=== PATIENT | female | born 1960 | race African-American/Black ===

== ENCOUNTER 2022-03-02 11:31 | Inpatient (IN) | payer MEDICARE, MEDICAID ==
[~2022-03-02] VITALS: Ht 154.9 cm; Wt 66.7 kg
[2022-03-02] MEDS ORDERED: NITROGLYCERIN 0.4MG TABLET SL SL PRN (16:45)
[2022-03-02 17:13] LABS: BASOPHILS % 0.4 % (0.0-2.0); EOSINOPHILS % 1.6 % (0.0-5.0); HEMATOCRIT. 43.9 % (36.0-48.0); LYMPHOCYTES % 48.1 % (20.0-50.0); MEAN CORPUSCULAR HEMOGLOBIN 28.4 pg (28.0-32.0); MEAN CORPUSCULAR VOLUME 83.1 fL (81.0-99.0); MEAN PLATELET VOLUME 8.2 fl (7.4-10.4); MONOCYTES % 7.5 % (2.0-8.0); NEUTROPHILS % 42.4 % (40.0-76.0); PLATELET 268 x1000/uL (130-400); RED BLOOD CELL COUNT 5.28 mill/uL (4.2-5.4); RED CELL DISTRIBUTION WIDTH 15.2 % (11.6-14.6)
[2022-03-02 17:15] LABS: CHLORIDE 107 mEq/L (98-107)
[2022-03-03] VITALS (7 sets, daily range): BP systolic 98–153; BP diastolic 51–103
[2022-03-03] MEDS ORDERED: ACETAMINOPHEN 325MG TABLET PO PRN ×2 (01:15)
[2022-03-03] MEDS ORDERED: LISINOPRIL 5MG TABLET PO SCH (01:15)
[2022-03-03] MEDS ORDERED: IPRATROPIUM/ALBUTEROL 0.5-3(2.5)MG/3ML NEB HHN PRN (01:15)
[2022-03-03] MEDS ORDERED: HYDROCODONE/ACETAMINOPHEN 7.5/325MG TABLET PO PRN (01:15)
[2022-03-03] MEDS ORDERED: CLONIDINE 0.1MG TABLET PO PRN (01:15)
[2022-03-03] MEDS ORDERED: METHOCARBAMOL 500MG TABLET PO SCH (01:30)
[2022-03-03] MEDS ORDERED: HYDROCHLOROTHIAZIDE 25MG TABLET PO NR (01:30)
[2022-03-03] MEDS ORDERED: NALOXONE HCL 0.4MG/ML VIAL IV PRN (02:30)
[2022-03-03] MEDS: HYDROCODONE/ACETAMINOPHEN 7.5/325MG TABLET PO PRN ×2 (02:46→14:31)
[2022-03-03 03:26] LABS: CLARITY URINE CLEAR (CLEAR); COLOR URINE YELLOW (YELLOW); KETONES URINE 1+ (NEGATIVE); LEUKOCYTE ESTERASE URINE NEGATIVE (NEGATIVE); NITRITE URINE NEGATIVE (NEGATIVE); OCCULT BLOOD URINE 1+ (NEGATIVE); PROTEIN URINE NEGATIVE (NEGATIVE); SPECIFIC GRAVITY URINE 1.016 (1.005-1.030); UROBILINOGEN URINE 0.2 E.U./dL (0.2-1.0)
[2022-03-03] MEDS ORDERED: *PATIENT'S OWN MEDICATION STORAGE XX SCH (03:30)
[2022-03-03] MEDS ORDERED: NITROGLYCERIN 0.4MG TABLET SL SL PRN (03:45)
[2022-03-03] MEDS: ASPIRIN 81MG TABLET PO SCH (08:46)
[2022-03-03] MEDS: DULOXETINE HCL 30MG DR CAPSULE PO SCH (08:47)
[2022-03-03] MEDS: METOPROLOL TARTRATE 25MG TABLET PO SCH ×3 (08:48→17:48)
[2022-03-03] MEDS: LISINOPRIL 20MG TABLET PO SCH ×2 (08:48→13:08)
[2022-03-03 08:57] LABS: PROTHROMBIN TIME 10.9 sec (9.6-11.0)
[2022-03-03] MEDS: ENOXAPARIN 40MG/0.4ML SYR SUBCUT SCH (09:00)
[2022-03-03 16:28] LABS: *AMPHETAMINES SCREEN URINE NEGATIVE (NEGATIVE); *BARBITURATES SCREEN URINE NEGATIVE (NEGATIVE); *BENZODIAZEPINES SCREEN URINE NEGATIVE (NEGATIVE); *COCAINE SCREEN URINE NEGATIVE (NEGATIVE); CANNABINOID URINE SCREEN PRESUMTIVE POSITIVE (NEGATIVE); METHADONE URINE SCREEN NEGATIVE (NEGATIVE); OPIATES URINE SCREEN PRESUMTIVE POSITIVE (NEGATIVE); PHENCYCLIDINE URINE SCREEN NEGATIVE (NEGATIVE)
[2022-03-03] MEDS: FAMOTIDINE 20MG TABLET PO SCH (21:51)
[2022-03-03] MEDS: ATORVASTATIN CALCIUM 40MG TABLET PO SCH (21:52)
[2022-03-04] VITALS: BP 135/72
[2022-03-04 04:00] VITALS: BP 108/60
[2022-03-04] MEDS: HYDROCODONE/ACETAMINOPHEN 7.5/325MG TABLET PO PRN ×2 (04:17→20:04)
[2022-03-04 08:15] VITALS: BP 104/60
[2022-03-04] MEDS: METOPROLOL TARTRATE 25MG TABLET PO SCH ×2 (08:49→17:00)
[2022-03-04] MEDS: LISINOPRIL 20MG TABLET PO SCH (08:49)
[2022-03-04] MEDS: DULOXETINE HCL 30MG DR CAPSULE PO SCH (08:51)
[2022-03-04] MEDS: ASPIRIN 81MG TABLET PO SCH (08:51)
[2022-03-04] MEDS: ENOXAPARIN 40MG/0.4ML SYR SUBCUT SCH (08:52)
[2022-03-04 09:04] LABS: T4 FREE 1.27 ng/dL (0.76-1.46)
[2022-03-04] MEDS: RISPERIDONE 0.5MG TABLET PO SCH ×2 (11:55→20:03)
[2022-03-04 12:00] VITALS: BP 108/67
[2022-03-04 16:00] VITALS: BP 100/54
[2022-03-04 20:00] VITALS: BP 117/69
[2022-03-04] MEDS: FAMOTIDINE 20MG TABLET PO SCH (20:03)
[2022-03-04] MEDS: ATORVASTATIN CALCIUM 40MG TABLET PO SCH (20:03)
[2022-03-05] VITALS: BP 105/62
[2022-03-05 04:00] VITALS: BP 105/70
[2022-03-05] MEDS: HYDROCODONE/ACETAMINOPHEN 7.5/325MG TABLET PO PRN ×2 (04:50→20:53)
[2022-03-05 08:00] VITALS: BP 97/76
[2022-03-05] MEDS: METOPROLOL TARTRATE 25MG TABLET PO SCH (09:00)
[2022-03-05] MEDS: LISINOPRIL 20MG TABLET PO SCH (09:00)
[2022-03-05] MEDS: RISPERIDONE 0.5MG TABLET PO SCH ×2 (09:36→20:52)
[2022-03-05] MEDS: ASPIRIN 81MG TABLET PO SCH (09:36)
[2022-03-05] MEDS: DULOXETINE HCL 30MG DR CAPSULE PO SCH (09:37)
[2022-03-05] MEDS: ENOXAPARIN 40MG/0.4ML SYR SUBCUT SCH (09:37)
[2022-03-05 12:00] VITALS: BP 118/72
[2022-03-05 16:00] VITALS: BP 123/69
[2022-03-05 20:00] VITALS: BP 118/76
[2022-03-05] MEDS: ATORVASTATIN CALCIUM 40MG TABLET PO SCH (20:53)
[2022-03-05] MEDS: FAMOTIDINE 20MG TABLET PO SCH (20:53)
[2022-03-05 21:44] LABS: BASOPHILS % 0.5 % (0.0-2.0); EOSINOPHILS % 1.8 % (0.0-5.0); HEMATOCRIT. 40.9 % (36.0-48.0); HEMOGLOBIN. 13.9 g/dL (12.0-16.0); MEAN CORPUSCULAR HEMOGLOBIN 28.2 pg (28.0-32.0); MEAN PLATELET VOLUME 8.6 fl (7.4-10.4); NEUTROPHILS % 32.7 % (40.0-76.0); PLATELET 237 x1000/uL (130-400); RED BLOOD CELL COUNT 4.93 mill/uL (4.2-5.4); RED CELL DISTRIBUTION WIDTH 14.8 % (11.6-14.6)
[2022-03-05 22:01] LABS: CHLORIDE 101 mEq/L (98-107)
[2022-03-06] VITALS: BP 120/64
[2022-03-06 04:00] VITALS: BP 126/76
[2022-03-06 07:16] LABS: BASOPHILS % 0.6 % (0.0-2.0); EOSINOPHILS % 1.9 % (0.0-5.0); HEMATOCRIT. 41.6 % (36.0-48.0); HEMOGLOBIN. 14.3 g/dL (12.0-16.0); LYMPHOCYTES % 58.7 % (20.0-50.0); MEAN CORPUSCULAR HEMOGLOBIN 28.6 pg (28.0-32.0); MEAN CORPUSCULAR VOLUME 82.9 fL (81.0-99.0); MEAN PLATELET VOLUME 8.4 fl (7.4-10.4); MONOCYTES % 10.2 % (2.0-8.0); NEUTROPHILS % 28.6 % (40.0-76.0); PLATELET 249 x1000/uL (130-400); RED BLOOD CELL COUNT 5.02 mill/uL (4.2-5.4); RED CELL DISTRIBUTION WIDTH 14.8 % (11.6-14.6)
[2022-03-06 07:39] LABS: CHLORIDE 106 mEq/L (98-107)
[2022-03-06 08:00] VITALS: BP 135/80
[2022-03-06] MEDS: RISPERIDONE 0.5MG TABLET PO SCH ×2 (08:26→21:30)
[2022-03-06] MEDS: DULOXETINE HCL 30MG DR CAPSULE PO SCH (08:26)
[2022-03-06] MEDS: ASPIRIN 81MG TABLET PO SCH (08:26)
[2022-03-06] MEDS: ENOXAPARIN 40MG/0.4ML SYR SUBCUT SCH (08:27)
[2022-03-06] MEDS: HYDROCODONE/ACETAMINOPHEN 7.5/325MG TABLET PO PRN ×3 (08:32→21:30)
[2022-03-06 12:00] VITALS: BP 122/81
[2022-03-06 16:00] VITALS: BP 113/71
[2022-03-06 20:00] VITALS: BP 129/78
[2022-03-06] MEDS: ATORVASTATIN CALCIUM 40MG TABLET PO SCH (21:30)
[2022-03-06] MEDS: FAMOTIDINE 20MG TABLET PO SCH (21:30)
[2022-03-07] VITALS: BP 108/67
[2022-03-07 04:00] VITALS: BP 104/66
[2022-03-07 08:25] VITALS: BP_SYST 118; BP_SYST 126; BP_DIAS 76; BP_DIAS 81
[2022-03-07] MEDS: RISPERIDONE 0.5MG TABLET PO SCH ×2 (08:30→20:20)
[2022-03-07] MEDS: ENOXAPARIN 40MG/0.4ML SYR SUBCUT SCH (08:30)
[2022-03-07] MEDS: DULOXETINE HCL 30MG DR CAPSULE PO SCH (08:30)
[2022-03-07] MEDS: ASPIRIN 81MG TABLET PO SCH (08:30)
[2022-03-07] MEDS: HYDROCODONE/ACETAMINOPHEN 7.5/325MG TABLET PO PRN ×2 (08:36→20:21)
[2022-03-07 12:51] VITALS: BP 118/65
[2022-03-07 16:00] VITALS: BP 113/76
[2022-03-07 20:00] VITALS: BP 125/78
[2022-03-07] MEDS: FAMOTIDINE 20MG TABLET PO SCH (20:20)
[2022-03-07] MEDS: ATORVASTATIN CALCIUM 40MG TABLET PO SCH (20:20)
[2022-03-08] VITALS: BP 116/70
[2022-03-08 04:00] VITALS: BP 107/59
[2022-03-08 08:51] VITALS: BP 126/83
[2022-03-08] MEDS: DULOXETINE HCL 30MG DR CAPSULE PO SCH (08:58)
[2022-03-08] MEDS: ASPIRIN 81MG TABLET PO SCH (08:58)
[2022-03-08] MEDS: RISPERIDONE 0.5MG TABLET PO SCH (08:58)
[2022-03-08] MEDS: ENOXAPARIN 40MG/0.4ML SYR SUBCUT SCH (08:59)
[2022-03-08 12:15] VITALS: BP 160/92
[2022-03-08 12:35] VITALS: BP 160/88
== END 2022-03-08 15:23 | disposition home or self-care (01) | DRG 205 ==
LOC: ER 11:31 → MICUSO 19:18 → EDBEDREQ 19:38 → 3WST 03-03 00:37 → 7EST 03-03 05:36
PROVIDERS: ADMIT Hospitalist; ATTEND Hospitalist
DX: M94.0 Chondrocostal junction syndrome [Tietze] (principal); U07.1 COVID-19; R45.851 Suicidal ideations; F41.9 Anxiety disorder, unspecified; F32.A Depression, unspecified; E78.5 Hyperlipidemia, unspecified; I25.10 Atherosclerotic heart disease of native coronary artery without angina pectoris; I10 Essential (primary) hypertension; F20.9 Schizophrenia, unspecified; M62.838 Other muscle spasm; I25.2 Old myocardial infarction; Z28.310 Unvaccinated for COVID-19; Z59.00 Homelessness unspecified; Z79.82 Long term (current) use of aspirin; Z95.5 Presence of coronary angioplasty implant and graft; Z87.891 Personal history of nicotine dependence; Z79.899 Other long term (current) drug therapy; Z81.8 Family history of other mental and behavioral disorders
CPT/HCPCS: 36415; 71045; 80048; 80053; 80061; 80305; 81003; 83036; 83880; 84439; 84443; 84484; 85025; 87426; 93005; 93970; 99285; C1893; C9803; J1650